=== PATIENT | female | born 1995 | race Caucasian/White ===

== ENCOUNTER 2017-12-29 16:55 | Emergency (ER) | payer OTHER ==
--- NOTE | 2017-12-29 17:23 | EDPHY ---
H & P Time Seen by Provider: 12/29/17 17:12 HPI/ROS: CHIEF COMPLAINT: Finger laceration HISTORY OF PRESENT ILLNESS: Patient was cutting basil with a knife when she injured her left ring finger just before arrival. Bleeding but no foreign body sensation or weakness or numbness REVIEW OF SYSTEMS: Negative PAST MEDICAL HISTORY: ana Danlos General Appearance: Alert and conversant, cooperative. 10 mm laceration left ring finger extending to the medial portion of the fingernail. Normal flexion and extension and normal 2 point sensation distally. Normal capillary refill. Emergency Department course/MDM: Procedure: Laceration repair. Verbal consent was obtained from the patient. The 10 mm laceration on the left ring finger was anesthetized using digital block with 0.5% bupivacaine without epinephrine. Standard sterile technique. The wound was irrigated with standard emergency department protocol, draped and explored. There were no deep structures involved. No tendon injury was identified. No foreign body found. The wound was repaired with 6 0 Prolene. The wound repair was simple. Excellent hemostasis was obtained. Wound care instructions were discussed and the patient was warned regarding scarring. The procedure was performed by myself. Patient was warned there may be permanent nail bed deformity. Smoking Status: Never smoked Constitutional: Initial Vital Signs Temperature (C) 36.5 C 12/29/17 16:58 Heart Rate 100 12/29/17 16:58 Respiratory Rate 16 12/29/17 16:58 Blood Pressure 127/97 H 12/29/17 16:58 O2 Sat (%) 98 12/29/17 16:58 O2 Delivery Mode Room Air Allergies/Adverse Reactions: Penicillins Allergy (Verified 08/27/15 12:25) Home Medications: Medication Instructions Recorded Adderall 10 MG (RX) 08/27/15 Align 08/27/15 Bcp 08/27/15 Lexapro 08/27/15 Zegerid 20 mg Packet 08/27/15 MDM/Departure - MDM Medications Given: Discontinued Medications Diphtheria/Tetanus/Acell Pertussis (Boostrix) 0.5 ml IM .ONCE ONE Stop: 12/29/17 18:22 Last Admin: 12/29/17 18:32 Dose: 0.5 ml ED Course/Re-evaluation: Tetanus updated. Suture removal 10 days. - Depart Disposition: Home, Routine, Self-Care Clinical Impression: Laceration of ring finger Qualifiers: Encounter type: initial encounter Damage to nail status: with damage Foreign body presence: without foreign body Laterality: left Qualified Code(s): S61.315A - Laceration without foreign body of left ring finger with damage to nail, initial encounter Condition: Good Instructions: Laceration (ED) Additional Instructions: Suture removal 10 days; you can come back to the ED. Stand Alone Forms: School Excuse Referrals: NONE *PRIMARY CARE P,. [Primary Care Provider] - As per Instructions
[2017-12-29] MEDS ORDERED: TDAP ADULT 0.5 ML INJ (BOOSTRIX) IM ONE (18:21)
[2017-12-29 18:43] VITALS: BP 145/98; PULSE 95; RESP 18; TEMP 98.1; O2SAT 97
== END 2017-12-29 18:41 | disposition home or self-care (01) ==
PROC: 0HQGXZZ Repair Left Hand Skin, External Approach (ICD-10-PCS; principal; 2017-12-29)
DX: S61.315A Laceration without foreign body of left ring finger with damage to nail, initial encounter (principal); Z23 Encounter for immunization; W26.0XXA Contact with knife, initial encounter; Y93.89 Activity, other specified

== ENCOUNTER 2018-10-15 11:10 | Emergency (ER) | payer OTHER ==
--- NOTE | 2018-10-15 11:43 | EDPHY ---
H & P Time Seen by Provider: 10/15/18 11:32 HPI/ROS: HPI: This is a 23-year-old female who presents with Chief Complaint: Right thumb laceration Location: Right thumb Quality: Laceration Duration: Prior to arrival Signs and Symptoms: + bleeding, no radiation, no numbness, no weakness, no tingling, no incontinence, no decreased range of motion, no swelling, + pain, no fever Timing: Acute Severity: Mild Context: Patient is right-hand dominant, presents with complaints of accidentally cutting of a small piece of her right thumb finger tip off with the mandolin while slicing potatoes this morning. Patient reports that it started to bleed and she applied direct pressure and the bleeding stopped. Reports tetanus is current. Denies paresthesias, weakness, radiation, decreased range of motion. Modifying Factors: Direct pressure with moderate relief Comment: ROS: A comprehensive 10 system review of systems is otherwise negative aside from elements mentioned in the history of present illness. MEDICAL/SURGICAL/SOCIAL HISTORY: Medical history: Irritable bowel syndrome, connective tissue disorder, depression Surgical history: Denies Social history: Nonsmoker. CONSTITUTIONAL: Young adult white female, awake and alert, no obvious distress HEENT: Atraumatic and normocephalic, PERRL, EOMI. Nares patent; no rhinorrhea; no nasal mucosal edema. Tympanic membranes clear. Oropharynx clear, no exudate and moist pink mucosa. Airway patent. No lymphadenopathy. No meningismus. Cardiovascular: Normal S1/S2, regular rate, regular rhythm, without murmur rub or gallop. PULMONARY/CHEST: Symmetrical and nontender. Clear to auscultation bilaterally. Good air movement. No accessory muscle usage. ABDOMEN: Soft, nondistended, nontender, no rebound, no guarding, no peritoneal signs, no masses or organomegaly. No CVAT. EXTREMITIES: 2/2 radial pulses, strength 5/5, right thumb 1/8 cm superficial skin avulsion with no active bleeding; no nail injury. DIP/MCP flexion and extension intact with good light touch sensation. no deformities, no clubbing, no cyanosis or edema. NEUROLOGICAL: no focal neuro deficits. GCS 15. SKIN: Warm and dry, no erythema. no rash. Good capillary refill. Source: Patient Exam Limitations: No limitations - Medical/Surgical History Hx Asthma: Yes Hx Chronic Respiratory Disease: No Hx Diabetes: No Hx Cardiac Disease: No Hx Renal Disease: No Hx Cirrhosis: No Hx Alcoholism: No Hx HIV/AIDS: No Hx Splenectomy or Spleen Trauma: No Other PMH: IBS. connective tissue disorder - Social History Smoking Status: Never smoked Allergies/Adverse Reactions: Penicillins Allergy (Verified 08/27/15 12:25) Home Medications: Medication Instructions Recorded Adderall 10 MG (RX) 08/27/15 Align 08/27/15 Bcp 08/27/15 Lexapro 08/27/15 Zegerid 20 mg Packet 08/27/15 Medical Decision Making ED Course/Re-evaluation: Tetanus is up-to-date. Bleeding has resolved upon arrival to the emergency room. Irrigated copiously Surgery foam and clean sterile dressing applied. Verbal and written wound care instructions provided. No signs of neurovascular compromise/tenting of skin/compartment syndrome/ extremities and joints examined above and below area of concern and are neurovascularly intact. This patient was seen under the supervision of my secondary supervising physician. I evaluated care for this patient independently. Discussed this patient with Dr. Dietz. Differential Diagnosis: Differential diagnosis includes but is not limited to skin avulsion, laceration , nerve injury, tendon injury. Departure - Departure Disposition: Home, Routine, Self-Care Clinical Impression: Avulsion of skin of thumb without complication Qualifiers: Encounter type: initial encounter Laterality: right Qualified Code(s): S61.001A - Unspecified open wound of right thumb without damage to nail, initial encounter Condition: Good Instructions: Skin Avulsion (ED), Bacitracin/Neomycin/Polymyxin B (On the skin) Additional Instructions: Keep the dressing dry and in place for 48 hours. After 48 hours, you may remove the dressing; wash the site daily with soap and water; pat dry; apply topical antibiotic ointment and clean sterile dressing daily until fully healed.. Take Tylenol 650 mg every 4 hours and/or Ibuprofen 600 mg every 8 hours with food as needed for pain. Return to the ER immediately if you experience redness, red streaks, have fevers /chills, flu like symptoms, limited range of motion, or any other symptoms that concern you. Referrals: [facility],. [Clinic] - As per Instructions
[2018-10-15 11:58] VITALS: BP 119/90
== END 2018-10-15 11:58 | disposition home or self-care (01) ==
DX: S61.001A Unspecified open wound of right thumb without damage to nail, initial encounter (principal); W26.8XXA Contact with other sharp object(s), not elsewhere classified, initial encounter; Y93.G1 Activity, food preparation and clean up; Y92.9 Unspecified place or not applicable; Y99.9 Unspecified external cause status